=== PATIENT | female | born 1975 | race Caucasian/White ===

== ENCOUNTER → 2017-09-25 | Outpatient (CLI) | payer OTHER | END | disposition home or self-care (01) | LOC: C.PAPS 13:59 | PROVIDERS: ATTEND Physician Assistant | DX: Z12.4 Encounter for screening for malignant neoplasm of cervix (principal) ==

== ENCOUNTER → 2017-09-28 | Outpatient (CLI) | payer OTHER ==
--- NOTE | 2017-09-29 07:40 | MAMMOGRAPHY REPORT ---
BILATERAL DIGITAL DIAGNOSTIC MAMMOGRAM TOMOSYNTHESIS WITH CAD AND TARGETED BILATERAL ULTRASOUND: 09/28 CLINICAL HISTORY: 41-year-old woman presents for diagnostic evaluation after her provider palpated a lump in the approximate 4:00 left breast on recent physical exam. The patient reports the lump does not feel different or abnormal to her. No skin erythema, thickening or nipple discharge. Patient re ports a family history of breast fibroids. Baseline mammograms. TECHNIQUE: Bilateral breast tomosynthesis in addition to standard 2D mammography was performed. Curr ent study was also evaluated with a Computer Aided Detection (CAD) system. COMPARISON: No prior exams were available for comparison. BREAST COMPOSITION: There are scattered areas of fibroglandular density in both breasts. FINDINGS: A triangular palpable skin marker overlies the 3:00 to 4:00 anterior left breast, denoting the palpable lump pointed out by the patient. There is no evidence of a suspicious mass, asymmetry, focal area of distortion or suspicious calcifications near the area of concern in the left breast or elsewhere throughout the remainder of the left breast. There is a 13 mm asymmetry in the far superio r right breast on the MLO view, that has the appearance of normal glandular tissue on the correspondi ng tomosynthesis images and is thought to project laterally based on the tomosynthesis localizer bar although not definitively seen in the CC plane. No focal area of architectural distortion, suspiciou s mass or suspicious calcifications identified in the right breast. Targeted ultrasound was performed in the 4:00 left breast in the area of palpable lump identified by her provider, and in the upper outer quadrant of the right breast. In the area of concern in the 4:0 0 to 5:00 left breast on palpation, there is a soft mobile area of tissue. On targeted ultrasound pe rformed over this area demonstrates sonographically normal tissue without evidence of a suspicious so lid or cystic mass. Targeted ultrasound performed in the right upper outer quadrant demonstrates an island of normal glan dular tissue in the 10:00 axis, approximately 5 cm from the nipple. There is no underlying solid or cystic mass. This could represent normal fiber glandular tissue or a benign entity such as the patch although a six-month follow-up is recommended given the mammographic asymmetry and that this is a ba seline exam and there are no prior mammograms to assess stability. IMPRESSION: ACR-BI-RADS CATEGORY 3: PROBABLY BENIGN, TARGETED ULTRASOUND ACR-BI-RADS CATEGORY 3: PRO BABLY BENIGN 1. There is no suspicious mammographic or targeted sonographic abnormality in the area of palpable l ump in the approximate 4:00 left breast, identified by the patient's provider. Therefore, clinical f ollow-up is recommended, as biopsy of a clinically suspicious mass should not be precluded by negativ e imaging. 2. There is a 13 mm asymmetry in the far superior right breast on the MLO view, with probable island of normal glandular tissue seen in the 10:00 right breast on ultrasound. Given that this is identif ied on the patient's baseline exam, a short interval follow-up right diagnostic tomosynthesis mammogr am and possible repeat ultrasound is recommended to ensure stability in 6 months. These results and recommendations were discussed with the patient at the time of the exam. She tenta tively scheduled a follow-up appointment prior to leaving our department. Approximately 10% of breast cancers are not detected with mammography. A negative mammographic report should not delay biopsy if a clinically suggestive mass is present. Ria Bennett M.D. ay/:09/28/2017 14:51:21 [employer]ash [employer] Supervisor: Susan MOODY(Skyler)(Serina), [facility] letter sent: Follow Up Recommended 3 BI-RADS Code: ACR-BI-RADS Category 3: Probably Benign Ultrasound BI-RADS: ACR-BI-RADS Category 3: Pr obably Benign
== END | disposition home or self-care (01) ==
LOC: C.MAMM 13:24
PROVIDERS: ATTEND Physician Assistant
DX: N63.20 Unspecified lump in the left breast, unspecified quadrant (principal)